=== PATIENT | female | born 1935 | race Caucasian/White ===

== ENCOUNTER 2017-03-19 07:53 | Inpatient (IN) | payer MEDICARE, OTHER ==
[~2017-03-19 07:53] MED LIST: MORPHINE SULFATE 15 MG TABLET.SA PO PRN; RINGER'S SOLUTION,LACTATED 1,000 ML IV PRN; ROPIVACAINE HCL/PF 100 MG, EPINEPHrine 0.2 MG, KETOROLAC TROMETHAMINE 30 MG in NORMAL S... IJ PRN; TRANEXAMIC ACID 1,000 MG in NORMAL SALINE 100 ML IV PRN; VANCOMYCIN HCL 1 GM in DEXTROSE 5 % IN WATER 250 ML IV PRN; ceFAZolin SODIUM 1 GM VIAL IV PRN
--- NOTE | 2017-03-19 09:46 | PREOP NOTE ---
Preoperative Progress Note - Preoperative Changes Changes to Preop Condition?: No Changes
[2017-03-19] MEDS ORDERED: RINGER'S SOLUTION,LACTATED 1,000 ML IV ONE (10:30)
[2017-03-19] MEDS ORDERED: ONDANSETRON HCL/PF 2 MG/ML VIAL IV PRN (12:09)
[2017-03-19] MEDS ORDERED: PROMETHAZINE HCL 5 MG in DEXTROSE 5 % IN WATER 50 ML IV PRN ×2 (12:09)
[2017-03-19] MEDS ORDERED: MAGNESIUM HYDROXIDE 30 ML UDC PO PRN (12:09)
[2017-03-19] MEDS ORDERED: diphenhydrAMINE HCL 50 MG/ML VIAL IV PRN (12:09)
[2017-03-19] MEDS ORDERED: ZOLPIDEM TARTRATE 5 MG TABLET PO PRN (12:09)
[2017-03-19] MEDS ORDERED: ACETAMINOPHEN 500 MG TABLET PO PRN (12:09)
[2017-03-19] MEDS ORDERED: oxyCODONE HCL/ACETAMINOPHEN 1 TAB TABLET PO PRN (12:09)
[2017-03-19] MEDS ORDERED: DEXTROSE 5%-LACTATED RINGERS 1,000 ML IV PRN (12:09)
[2017-03-19] MEDS ORDERED: HYDROmorphone HCL 1 MG/ML DISP.SYRIN IV PRN (12:09)
[2017-03-19] MEDS ORDERED: MAG HYDROX/ALUMINUM HYD/SIMETH 30 ML UDC PO PRN (12:09)
[2017-03-19] MEDS ORDERED: CHLORDIAZEPOXIDE PO PRN (12:10)
[2017-03-19] MEDS ORDERED: PSYLLIUM SEED 1 PACKET PACKET PO PRN (12:10)
[2017-03-19] MEDS ORDERED: CALCIUM CARBONATE 500 MG TAB.CHEW PO PRN (12:10)
[2017-03-19] MEDS ORDERED: CLIDINIUM BR PO PRN (12:10)
--- NOTE | 2017-03-19 12:13 | OR ---
Operative Report - Dictated Report Narrative: Date: 03/19/2017 Preoperative diagnosis: Left Knee degenerative joint disease. Postoperative diagnosis: Left Knee degenerative joint disease. Procedure: Left Total knee arthroplasty. Surgeon: Aman Voss M.D. What Job Titles Mean: Toñito Parks PA-C Anesthesia: Spinal with regional block and local periarticular joint injection. Complications: None Specimens: Bone for disposal. Estimated blood loss: Minimal. Tourniquet time: 64 Minutes at 325 millimeters of mercury. Retained implants: Depuy Attune size 5 narrow left lugged cemented posterior stabilized femoral component. Size for fixed-bearing cemented tibial platform. 5 by 5 millimeter posterior stabilized cross-linked tibial insert. 35 millimeter medialized patella button. Indications: Mrs. Rivera is a 81-year-old female who has had long-standing left knee pain. This patient was followed in my clinic for period of time with significant complaints of left knee pain consistent with arthritic changes. She had failed conservative measures including, but not limited to, activity modification, passage of time, medications, and other conservative measures. Patient wished to proceed with surgical treatment. The risks, benefits, and alternatives were discussed in clinic. The risks of , blood clots, bleeding, infection, nerve/tendon blood vessel/ injury, malposition of components, intraoperative fracture, postoperative limited range of motion, persistent pain, failure of components, and need for additional procedures. Patient wished to proceed consent was obtained after answering all questions. Procedure: After marking the correct extremity on the floor, the patient was taken to the operating room. A timeout was performed. IV antibiotics consisting of vancomycin and Ancef secondary to positive MRSA screening were administered prior to the procedure. A regional followed by spinal anesthetic was induced by anesthesia, per my request, on the operative table with all bony prominences well-padded. Flores catheter was placed, and a bump was placed under the operative side buttock. SCDs and PHOENIX hose were utilized on the nonoperative leg. A well-padded tourniquet was applied to the operative thigh. The operative leg was then pre-scrubbed with alcoho,l prepped, and draped in a standard sterile fashion. After exsanguinating the extremity with an Esmarch bandage, the tourniquet was inflated. After marking out the anterior knee for standard incision centered over the patella, the skin was incised and dissected down to the joint retinaculum. The joint retinaculum was marked out as well as the horizontal axis of the patella, and a standard medial parapatellar arthrotomy was then made. The most proximal aspect of the quadriceps tendon and the patella tendon insertion were protected from release. A partial synovectomy was performed as well as a resection of the infrapatellar fat pad. The distal femoral fat pad proximal to the trochlea was also resected using cautery. The soft tissues were elevated off the medial aspect of the proximal tibia using a Silveira elevator ensuring that we did not transect the medial collateral ligament. Upon initial evaluation range of motion was approximately 0 degrees to 120 degrees of flexion. There were signs of advanced arthrosis in the medial, lateral, patellofemoral joint spaces. There were large marginal osteophytes which were removed with a rongeur. The knee was hyperflexed and the patella was tucked laterally. Protecting the surrounding soft tissues with Homans, an entry drill was placed down the femoral canal using Whitesides line for guidance into the entry point. The intramedullary femoral alignment danielito was utilized in order to cut the distal femur in 5 degrees of valgus resecting 10 millimeters of bone. Next the distal femur was sized to a size 5. A posterior referencing guide was utilized to place the distal femoral cutting block in 3 degrees of external rotation. This was pinned into place. The rotation was confirmed both visually and based on anatomic landmarks. The 4 in 1 cutting jig of the appropriate size was utilized in order to make all bony cuts. The angle wing was used to ensure no notching. Retractors were utilized in order to protect surrounding soft tissues. This cut did not result in any excessive notching. We then cut the box centered over the distal femur. This allowed for resection of the anterior and posterior cruciate ligaments. I then turned my attention to the preparation of the tibia. Using an extra medullary tibial alignment danielito, 3 millimeters of bone was resected off the medial articular surface. This was made perpendicular to the mechanical axis of the joint with the alignment danielito centered over the ankle mortise. The alignment danielito was checked and was noted to be parallel to the mechanical axis, centered over the medial one third of the tibial tubercle, paralleling the anterior surface of the tibia. We then turned our attention to the remaining meniscus and soft tissues. These were removed while protecting the surrounding ligaments and soft tissues. The marginal osteophytes off the anterior, posterior, medial, lateral aspects of the femur and tibia were removed. The tibia was sized out to a size 4. Next the tibia was drilled and punched in an externally rotated position. Next the trial femur and a series of tibial inserts were utilized in order to allow for full extension and maximal flexion. It was found that a 5 millimeter insert gave the best range of motion and stability at multiple flexion points as well as at full extension there was less than 2 mm of gapping both medially and laterally. There is minimal anterior translation with the knee at 90 degrees of flexion and no signs of being able to dislocate the knee. The patella was then prepared. The initial thickness was 20 millimeters. This was reamed down to 11 millimeters parallel to the anterior surface of the patella. It was sized out to a size 35 medialized patella button. This was then drilled and trialed. Without any medial restraint the patella tracked appropriately and did not sublux or dislocate. At this point, it was felt these were the appropriate sized implants, and all trials were removed. The standard periarticular joint injection consisting of ropivacaine, Toradol, and epinephrine were injected into the periarticular joint tissues. The bony surfaces were thoroughly irrigated with a pulsatile- suction saline irrigation device. A bone plug from the prior resected anterior chamfer cut was placed into the drill hole at the distal femur. The bony surfaces were then dried in preparation for placement of the implants. The cement was vacuum mixed per the straddle buggy operator's instructions. The cement was placed on the dry bony surfaces and posterior aspect of the implants. The implants were impacted into place, removing all extruded cement. At this point anesthesia administered tranexamic acid per protocol intravenously. The knee was placed in extension with axial loading with the trial insert while the cement cured. Once the cement cured, all remaining extruded cement was removed. The knee was placed through a range of motion with the trial insert to ensure appropriate range of motion and stability. Final range of motion was approximately 0 to 120 degrees. The knee was again thoroughly irrigated with pulsatile saline lavage. The final polyethylene insert was then impacted into place ensuring no retained soft tissues. The remaining periarticular joint injection was injected. A medium Hemovac drain was placed exiting superior laterally. The knee was then placed over a triangle and the arthrotomy was closed with interrupted #1 Vicryl after thoroughly irrigating the joint. The deep and subcutaneous tissues were closed with interrupted 0 and 3-0 Vicryl respectively. Skin was closed with a running subcutaneous 3-0 Monocryl and Prineo Dermabond dressing. 4 x 4's, Sof-Rol, and a full leg Jaden wrap were applied. All sponge, needle, blade, and instrument counts were correct prior to closing the wounds. Postoperative condition: The patient was awoken and transferred to the postanesthesia care unit in stable condition. Plan is to be admitted to the inpatient medical/surgical floor postoperatively for 24 hours of IV antibiotics , physical therapy, occupational therapy, and medical comanagement. Patient will be weightbearing as tolerated with range of motion as tolerated. DVT prophylaxis will be with SCDs, PHOENIX hose, and pharmacological anticoagulation. Anticipated hospital stay is approximately 2-4 days.
[2017-03-19] MEDS ORDERED: CYCLOBENZAPRINE HCL 10 MG TABLET PO PRN (12:30)
[2017-03-19] MEDS: KETOROLAC TROMETHAMINE 15 MG/ML VIAL IV SCH ×2 (14:47→18:37)
--- NOTE | 2017-03-19 15:36 | OR ---
Anesthesia Procedure Note - Anesthesia Procedure Note Narrative: Vital Signs - Last Taken Temp 37.4 C 03/19/17 14:47 Pulse 78 03/19/17 14:47 Resp 18 03/19/17 14:47 BP 137/89 03/19/17 14:47 Pulse Ox 96 03/19/17 14:47 O2 Oxygen Delivery Method Room Air 03/19/17 15:32 ANESTHESIA PROCEDURE NOTE Date of procedure: 03/19/2017. Time of procedure: 1040. Performed by: Dagoberto Kidd CRNA Manager Mass: Dee Moore RN . Preprocedure diagnosis: Left femoral nerve block for postoperative analgesia status post left total knee arthroplasty. Post procedure diagnosis: Same. Procedure: Left femoral nerve block. Ultrasound-guided. Indications: Postoperative analgesia. Findings: Patient placed in a supine position and sedated to affect. Left femoral/inguinal area was prepped with ChloraPrep. Ultrasound was used to identify the femoral artery and femoral nerve. Nerve stimulator was also used to verify needle placement. 1% Xylocaine was infiltrated at the injection site. A total of 30 mL of 0.25% Marcaine with epinephrine 1 200,000 was injected using a 22-gauge 2 inch Stimuplex regional block needle. Local anesthetic was noted to 2 encircle femoral nerve. Images retained. EBL: Minimal. Fluids: N/A. Specimen: N/A. Post procedure condition: The patient tolerated the procedure well. No complications were noted. Thank you for this consultation Dagoberto Kidd CRNA
[2017-03-19] MEDS: SENNOSIDES/DOCUSATE SODIUM 1 TAB TABLET PO SCH (20:25)
[2017-03-19] MEDS: METOPROLOL TARTRATE 25 MG TABLET PO SCH (20:25)
[2017-03-19] MEDS: SIMVASTATIN 40 MG TABLET PO SCH (20:25)
[2017-03-19] MEDS: MORPHINE SULFATE 15 MG TABLET.SA PO SCH (20:28)
--- NOTE | 2017-03-19 21:17 | PN ---
Subjective - Date and Time Seen Date: 03/19/17 Time: 20:00 Subjective Narrative: Patient seen today POD#0 S/P Left total knee arthroplasty secondary to DJD. pt stated she had trouble walking due to knee pain that had gotten progressively worst over the years. She failed with conservative measures and elected to have procedure done today. Her pain currently is tolerable 3/10 on scale, denies numbness, tingling, shortness of breath, chest pain, fever or chills. Anticipating discharge home with family 2-3 days. Objective - Review of Systems Generalized/Overall Review: Reports: No Symptoms Reported EENTM: Reports: No Symptoms Reported Respiratory: Reports: No Symptoms Reported Cardiac: Reports: No Symptoms Reported Abdominal: Reports: No Symptoms Reported Genitourinary Symptoms: Reports: No Symptoms Reported Musculoskeletal Complaints: Reports: Joint Pain - right knee s/p arthroplasty Neurological: Reports: No Symptoms Reported Skin: Reports: No Symptoms Reported Endocrine: Reports: No Symptoms Reported - Vitals Vitals: Last Vital Signs Temp 36.8 C 03/19/17 18:45 Pulse 76 03/19/17 20:45 Resp 16 03/19/17 20:45 BP 138/66 03/19/17 20:45 Pulse Ox 95 03/19/17 20:45 - Exam Constitutional: Present: Alert, Oriented x3, Cooperative, No distress ENT Exam: Present: normal ENT inspection Neck: Present: full range of motion Breasts: Present: Exam deferred Respiratory: Present: chest non-tender, lungs clear, normal breath sounds Cardiovascular/Chest: Present: normal peripheral pulses, regular rate, rhythm, no chest tenderness Abdomen: Present: Normal bowel sounds, soft, nontender, nondistended /Rectal: Present: Exam deferred Extremity: Present: other - right knee pain s/p arthroplasty. Drain port Skin Exam: Present: normal color, warm/dry, no cyanosis Neurologic: Present: oriented x 3 Appearance: Present: appropriate appearance Eye contact: Present: cooperative, good eye contact Thoughts: Present: normal thought pattern Cauti Physician Documentation - Urinary Catheter Management Urethral (Flores) Date of Insertion: 03/19/17 Time of Insertion: 11:00 Assessment/Plan Plan Narrative: POD# 0 right knee arthroplast -secondary to DJD Ortho service following Lovenox and SCD PT/OT evaluation and treatment Continue with SCIP protocol antbx ( ancef) Ice pack to affected area and Dilaudid for pain control monitor hemogram tomorrow Flores to gravity D/C when pt up ambulating with PT Hypertension On adm BP 142/76 May resume home dose of medications Monitor Vital signs Q shift and as indicated Code status: DNR DVT ppx Lovenox SCD/ TEDs GI ppx: Pepcid - Problems/Diagnosis (1) Status post right knee replacement Problem: Acute (2) Hypertension Problem: Acute
[2017-03-19] MEDS ORDERED: FAMOTIDINE 20 MG TABLET ONE (21:19)
[2017-03-19] MEDS: FAMOTIDINE 20 MG TABLET PO SCH (21:21)
[2017-03-19] MEDS ORDERED: VANCOMYCIN HCL 1 GM in DEXTROSE 5 % IN WATER 250 ML IV SCH ×2 (22:09)
[2017-03-20] MEDS: KETOROLAC TROMETHAMINE 15 MG/ML VIAL IV SCH ×4 (01:12→19:33)
[2017-03-20 05:56] LABS: Hematocrit 35.2 % (37.0-47.0); Hemoglobin 11.7 gm/dL (12.5-16.0); Mean Cell Volume 92.6 fl (78-100); Mean Corpuscular Hemoglobin 30.8 pg (27-31); Mean Corpuscular Hgb Conc 33.2 g/dl (32-36); Mean Platelet Volume 8.6 fl (6.0-9.5); Platelet Count 220 K/mm3 (150-450); White Blood Count 8.5 K/mm3 (4.0-10.5)
[2017-03-20 06:06] LABS: BUN/Creatinine Ratio 12.7 (9.0-21.6); Carbon Dioxide 24.3 mmol/L (24-32.6); Potassium 4.3 mmol/L (3.4-4.6)
[2017-03-20 06:07] LABS: Calcium * 8.8 mg/dL (7.9-10.9)
[2017-03-20] MEDS: LEVOTHYROXINE SODIUM 125 MCG TABLET PO SCH (07:36)
--- NOTE | 2017-03-20 07:57 | PN ---
Subjective - Date and Time Seen Date: 03/20/17 Time: 07:54 Subjective Narrative: Subjective: Reports no concerns. Was able to get to the chair with therapy. Pain is well-controlled. Voiding without any complications. Tolerating by mouth intake. Denies any nausea or vomiting. Denies calf pain. Slept well. Physical exam: Alert and oriented to person, place and time Left lower Extremity: Palpable dorsalis pedis pulse. Sensation grossly intact to light touch. Dressings clean and dry. Able to flex and extend ankle and toes. No excessive drainage. Calf and thigh are soft and nontender. Assessment: Postop day 1 status post left total knee arthroplasty. Plan: Continue with physical and occupational therapy weightbearing as tolerated. Continue with anticoagulation. 24 hours postoperative prophylactic antibiotics. Pain control with goal to rely on oral medications. Continue bowel regimen. Will need 6 weeks with walker or assitive device to protect joint while ambulating during the recovery process. Discharge planning. Discontinue drain and Flores catheter. Repeat labs in a.m. Objective - Vitals Vitals: Last Vital Signs Temp 36.1 C L 03/20/17 07:04 Pulse 76 03/20/17 07:04 Resp 18 03/20/17 07:04 BP 135/69 03/20/17 07:04 Pulse Ox 96 03/20/17 07:04 - Abnormal Lab Findings Abnormal Lab Findings: Abnormal Lab Results 03/20/17 Range/Units 05:40 RBC 3.80 L (4.2-5.4) M/mm3 Hgb 11.7 L (12.5-16.0) gm/dL Hct 35.2 L (37.0-47.0) % - Exam Constitutional: Present: Alert, Oriented x3 Cauti Physician Documentation - Urinary Catheter Management Urethral (Flores) Date of Insertion: 03/19/17 Time of Insertion: 11:00 Assessment/Plan - Problems/Diagnosis (1) Status post total left knee replacement Problem: Acute (2) Hypertension Problem: Chronic (3) Acute blood loss anemia Problem: Acute (4) Anxiety Problem: Chronic (5) Fibromyalgia Problem: Chronic (6) Hypothyroid Problem: Chronic (7) Hyperlipidemia Problem: Chronic (8) IBS (irritable bowel syndrome) Problem: Acute
[2017-03-20] MEDS: FAMOTIDINE 20 MG TABLET PO SCH (09:19)
[2017-03-20] MEDS: MORPHINE SULFATE 15 MG TABLET.SA PO SCH (09:19)
[2017-03-20] MEDS: METOPROLOL TARTRATE 25 MG TABLET PO SCH ×2 (09:19→20:44)
[2017-03-20] MEDS: CHOLECALCIFEROL 1,000 UNIT CAPSULE PO SCH (09:19)
[2017-03-20] MEDS: ENOXAPARIN SODIUM 40 MG/0.4 ML SYRG SC SCH (11:34)
--- NOTE | 2017-03-20 19:30 | PN ---
Subjective - Date and Time Seen Date: 03/20/17 Time: 19:30 Subjective Narrative: c/o rash and nausea. no cp, no dyspnea. Objective - Review of Systems Generalized/Overall Review: Reports: No Symptoms Reported EENTM: Reports: No Symptoms Reported Respiratory: Reports: No Symptoms Reported Cardiac: Reports: No Symptoms Reported Abdominal: Reports: Nausea Genitourinary Symptoms: Reports: No Symptoms Reported Musculoskeletal Complaints: Reports: No Symptoms Reported Neurological: Reports: No Symptoms Reported Skin: Reports: Rash Endocrine: Reports: No Symptoms Reported Misc: All systems neg except as marked - Vitals Vitals: Last Vital Signs Temp 36.6 C 03/20/17 19:25 Pulse 87 03/20/17 19:25 Resp 20 03/20/17 19:25 BP 130/62 03/20/17 19:25 Pulse Ox 97 03/20/17 19:25 - Abnormal Lab Findings Abnormal Lab Findings: Abnormal Lab Results 03/20/17 Range/Units 05:40 RBC 3.80 L (4.2-5.4) M/mm3 Hgb 11.7 L (12.5-16.0) gm/dL Hct 35.2 L (37.0-47.0) % - Exam Constitutional: Present: Alert, Cooperative, No distress ENT Exam: Present: hearing grossly normal Neck: Present: full range of motion, supple Breasts: Present: Exam deferred Respiratory: Present: lungs clear, normal breath sounds, no respiratory distress Cardiovascular/Chest: Present: normal peripheral pulses, regular rate, rhythm Abdomen: Present: soft, nontender, nondistended /Rectal: Present: Exam deferred Extremity: Present: no calf tenderness, leg pain - left Skin Exam: Present: normal color, warm/dry, no cyanosis Cauti Physician Documentation - Urinary Catheter Management Urethral (Lawrence) Urethral Indwelling: No Date of Insertion: 03/19/17 Time of Insertion: 11:00 Date of Removal: 03/20/17 Time of Removal: 09:16 Assessment/Plan Plan Narrative: S/P Left TKA - POD #1 - secondary to DJD - ortho following - PT / OT following - currently on MS contin po with iv dilaudid for breakthrough pain - lawrence dc'd today - encourage ambulation. acute anemia blood loss - monitor hgb/hct, - no critical decrease in hgb/hct from this am labs Rash - unclear etiology - new medication is MS Cotin... however, she is also received Ancef preop - benadryl prn - RN to call ortho tonight with update Nausea - ? secondary to MS Contin - ? change pain meds - defer to ortho, RN to call ortho components engineer tonight. HTN - BP labile, SBP running from 112-140 - asymptomatic - continue Toprol xl 12.5 mg bid - monitor vital signs q 4 hours Code status: DNR VTE: lovenox / SCDs GI proph: pepcid - Problems/Diagnosis (1) Status post total left knee replacement Problem: Acute (2) Nausea Problem: Acute (3) Rash Problem: Acute (4) Acute blood loss anemia Problem: Acute (5) IBS (irritable bowel syndrome) Problem: Chronic (6) Anxiety Problem: Chronic (7) Fibromyalgia Problem: Chronic (8) Hyperlipidemia Problem: Chronic (9) Hypertension Problem: Chronic (10) Hypothyroid Problem: Chronic
[2017-03-20] MEDS: SENNOSIDES/DOCUSATE SODIUM 1 TAB TABLET PO SCH (20:44)
[2017-03-20] MEDS: SIMVASTATIN 40 MG TABLET PO SCH (20:44)
[2017-03-21] MEDS: KETOROLAC TROMETHAMINE 15 MG/ML VIAL IV SCH ×2 (01:11→07:35)
[2017-03-21 06:23] LABS: Hematocrit 33.6 % (37.0-47.0); Hemoglobin 11.3 gm/dL (12.5-16.0); Mean Cell Volume 92.6 fl (78-100); Mean Corpuscular Hemoglobin 31.1 pg (27-31); Mean Corpuscular Hgb Conc 33.6 g/dl (32-36); Mean Platelet Volume 8.9 fl (6.0-9.5); Platelet Count 233 K/mm3 (150-450); Red Blood Count 3.63 M/mm3 (4.2-5.4); Red Cell Distribution Width 12.8 % (11.5-14.0); White Blood Count 10.4 K/mm3 (4.0-10.5)
[2017-03-21 06:34] LABS: Anion Gap 11.2 mmol/L (6.8-13.8); BUN/Creatinine Ratio 16.9 (9.0-21.6); Calcium * 9.1 mg/dL (7.9-10.9); Carbon Dioxide 24.8 mmol/L (24-32.6); Estimated Creat Clear 44.7
[2017-03-21] MEDS: LEVOTHYROXINE SODIUM 125 MCG TABLET PO SCH (07:35)
--- NOTE | 2017-03-21 10:03 | PN ---
Subjective - Date and Time Seen Date: 03/21/17 Time: 10:02 Subjective Narrative: rash has improved. no nausea. no cp. states she is ready to go home. Objective - Review of Systems Generalized/Overall Review: Reports: No Symptoms Reported EENTM: Reports: No Symptoms Reported Respiratory: Reports: No Symptoms Reported Cardiac: Reports: No Symptoms Reported Abdominal: Reports: No Symptoms Reported Genitourinary Symptoms: Reports: No Symptoms Reported Musculoskeletal Complaints: Reports: No Symptoms Reported Neurological: Reports: No Symptoms Reported Skin: Reports: Rash Endocrine: Reports: No Symptoms Reported Misc: All systems neg except as marked - Vitals Vitals: Last Vital Signs Temp 36.9 C 03/21/17 06:45 Pulse 78 03/21/17 06:45 Resp 18 03/21/17 06:45 BP 114/58 03/21/17 06:45 Pulse Ox 95 03/21/17 06:45 - Abnormal Lab Findings Abnormal Lab Findings: Abnormal Lab Results 03/21/17 Range/Units 06:16 RBC 3.63 L (4.2-5.4) M/mm3 Hgb 11.3 L (12.5-16.0) gm/dL Hct 33.6 L (37.0-47.0) % MCH 31.1 H (27-31) pg - Exam Constitutional: Present: Alert, Oriented x3, Cooperative, Elderly ENT Exam: Present: hearing grossly normal Neck: Present: full range of motion, supple Breasts: Present: Exam deferred Respiratory: Present: lungs clear, normal breath sounds Cardiovascular/Chest: Present: normal peripheral pulses, regular rate, rhythm Abdomen: Present: soft, nontender, nondistended /Rectal: Present: Exam deferred Extremity: Present: normal inspection - right, no calf tenderness, leg pain - left Skin Exam: Present: warm/dry, no cyanosis, pallor Cauti Physician Documentation - Urinary Catheter Management Urethral (Flores) Urethral Indwelling: No Date of Insertion: 03/19/17 Time of Insertion: 11:00 Date of Removal: 03/20/17 Time of Removal: 09:16 Assessment/Plan Plan Narrative: S/P Left TKA - POD #2 - secondary to DJD - ortho following - PT / OT following - pain controlled - encourage ambulation. - likely discharge to home today. acute anemia blood loss - hgb / hct stable. Rash - unclear etiology - improved Nausea - improved HTN - BP labile, SBP running from 112-140 - asymptomatic - continue Toprol xl 12.5 mg bid Code status: DNR VTE: lovenox / SCDs GI proph: pepcid - Problems/Diagnosis (1) Status post total left knee replacement Problem: Acute (2) Nausea Problem: Acute (3) Rash Problem: Acute (4) Acute blood loss anemia Problem: Acute (5) IBS (irritable bowel syndrome) Problem: Chronic (6) Anxiety Problem: Chronic (7) Fibromyalgia Problem: Chronic (8) Hyperlipidemia Problem: Chronic (9) Hypertension Problem: Chronic (10) Hypothyroid Problem: Chronic
--- NOTE | 2017-03-21 10:13 | DS ---
(1) Acute blood loss anemia Problem: Acute (2) Nausea Problem: Acute (3) Status post total left knee replacement Problem: Acute (4) Fibromyalgia Problem: Chronic (5) Hyperlipidemia Problem: Chronic (6) Hypertension Problem: Chronic (7) Hypothyroid Problem: Chronic (8) IBS (irritable bowel syndrome) Problem: Chronic Description of Stay: Mrs. Rivera was admitted to the floor after undergoing left total knee arthroplasty. Tolerated this well. Was admitted to the floor postoperatively for 24 hours of IV antibiotics, pain control, medical comanagement, and occupational and physical therapy. OT and PT were consulted to assist with activities of daily living and ambulation. Was made weightbearing as tolerated with range of motion as tolerated. Pain was initially controlled with IV regimen. This was transitioned to oral once tolerating a by mouth intake. Was resumed on home diet and medications. Had a Flores catheter inserted and the operating room which was discontinued on postoperative day 1. A drain was placed intraoperatively into the knee which was discontinued on postoperative day 1. Lovenox SCD and PHOENIX hose were utilized for DVT prophylaxis. Vital signs remained stable to the hospital course. Serial labs were obtained which showed a final hemoglobin of 11.3 grams. BMP was reviewed and was stable. Physical examination throughout the hospital course showed an extremity that had sensation that was intact to light touch, palpable pulses, a benign wound, motor intact to the toes, ankle, and knee. Knee range of motion was approximately [] degrees to [] degrees. Once an oral pain regimen was tolerated and physical therapy goals were met, it was felt that they were stable for discharge to home. Instructions: Continue with weightbearing as tolerated and range of motion as tolerated. It is OK to shower on the wound if it is not draining. If you note any drainage or for comfort you can cover with dry gauze and tape. Change every 2-3 days as needed. Continue with physical therapy. Resume home diet. Report any fever over 101.5 Fahrenheit, uncontrolled pain, increased drainage, foul odor of drainage, new or increased calf pain or shortness of breath, or any other significant complaints. A 325mg dialy aspirin will be started after finishing anticoagulation if not allergic. Continue with PHOENIX hose on the operative extremity until instructed otherwise. No driving until instructed otherwise. Follow up in approximately 10-14 days. Procedures Performed: see notes below List Procedures: Left total knee arthroplasty Discharge Disposition: Home self care Disposition: Home self-care Condition: Good Discharge Activity: Activity as tolerated, Weight bearing Discharge Diet: Low salt, Low fat/chol Referrals: Uriel Adorno MD [Primary Care Provider] - Additional Patient Instructions (free text): Follow up outpatient Physical Therapy at [facility] on SundayMarch 23 at 10:15 AM. Follow-up in the office with Dr. Voss on 04/03/17@10:45am. Prescriptions (Any new or edited meds): Enoxaparin Sodium [Lovenox] 40 mg SC Q24H #7 disp.syrin oxyCODONE HCL/ACETAMINOPHEN [Percocet 5 MG/325 MG] 2 tab PO Q4H PRN #30 tablet PRN Reason: Moderate Pain Sennosides/Docusate Sodium [Senokot-S] 2 tab PO HS #30 tablet Complete Home Medications List: Complete Home Medication List: Metoprolol Tartrate [Lopressor] 12.5 mg PO BID 07/28/12 Calcium Carbonate [[id number]] 500 mg PO DAILY PRN 03/07/17 Cholecalciferol (Vitamin D3) [Vitamin D3] 2,000 unit PO DAILY 03/07/17 Cyclobenzaprine HCl 5 mg PO HS PRN 03/07/17 Levothyroxine Sodium [Synthroid] 125 mcg PO DAILY 03/07/17 Simvastatin [Zocor] 40 mg PO HS 03/07/17 Wheat Dextrin [Benefiber] 1 each PO DAILY PRN 03/07/17 chlordiazePOXIDE/CLIDINIUM BR [Librax] 1 cap PO TID PRN 03/07/17 Enoxaparin Sodium [Lovenox] 40 mg SC Q24H #7 disp.syrin 03/21/17 Sennosides/Docusate Sodium [Senokot-S] 2 tab PO HS #30 tablet 03/21/17 oxyCODONE HCL/ACETAMINOPHEN [Percocet 5 MG/325 MG] 2 tab PO Q4H PRN #30 tablet 03/21/17
[2017-03-21] MEDS: CHOLECALCIFEROL 1,000 UNIT CAPSULE PO SCH (10:19)
[2017-03-21] MEDS: ENOXAPARIN SODIUM 40 MG/0.4 ML SYRG SC SCH (10:20)
[2017-03-21] MEDS: METOPROLOL TARTRATE 25 MG TABLET PO SCH (10:20)
[2017-03-21] MEDS: FAMOTIDINE 20 MG TABLET PO SCH (10:20)
[2017-03-21 10:22] VITALS: BP 119/47
== END 2017-03-21 11:10 | disposition home or self-care (01) | DRG 470 ==
LOC: MS 07:53
PROVIDERS: ADMIT Orthopaedic Surgery; ATTEND Orthopaedic Surgery
PROC: 0SRD0J9 Replacement of Left Knee Joint with Synthetic Substitute, Cemented, Open Approach (ICD-10-PCS; principal; 2017-03-19 11:30)
DX: M17.12 Unilateral primary osteoarthritis, left knee (principal); D62 Acute posthemorrhagic anemia; I10 Essential (primary) hypertension; E78.5 Hyperlipidemia, unspecified; E03.9 Hypothyroidism, unspecified; K58.9 Irritable bowel syndrome, unspecified; Z79.82 Long term (current) use of aspirin
CPT/HCPCS: 27447; 36415; 73560; 80048; 85027; 97110; 97116; 97161; 97165; 97530; 97535; J2405